=== PATIENT | male | born 1970 | race Caucasian/White ===

== ENCOUNTER 2016-11-12 17:38 | Outpatient (CLI) | payer OTHER | END 2016-11-12 17:39 | disposition critical access hospital (66) | DX: R42 Dizziness and giddiness (principal) | CPT/HCPCS: A0425; A0429 ==

== ENCOUNTER 2016-11-12 17:54 | Emergency (ER) | payer OTHER | END 2016-11-12 19:13 | disposition home or self-care (01) | DX: F41.0 Panic disorder [episodic paroxysmal anxiety] (principal); E78.00 Pure hypercholesterolemia, unspecified; J45.909 Unspecified asthma, uncomplicated; G61.0 Guillain-Barre syndrome ==

== ENCOUNTER 2021-10-21 23:02 | Outpatient (CLI) | payer OTHER | END 2021-10-21 23:03 | disposition EMS.NT | LOC: EMS 23:02 | DX: R06.02 Shortness of breath (principal); R06.2 Wheezing; X00.1XXA Exposure to smoke in uncontrolled fire in building or structure, initial encounter; Y92.009 Unspecified place in unspecified non-institutional (private) residence as the place of occurrence of the external cause ==